=== PATIENT | male | born 1940 | race Caucasian/White ===

== ENCOUNTER 2018-12-30 07:47 | Inpatient (IN) | payer OTHER ==
[2018-12-11 09:03] LABS: HEMATOCRIT 39.9 % (42.0-52.0); MCH 31.5 pg (26.0-34.0); MCHC 35.2 g/dL (28.0-37.0); MCV 89.7 fL (80.0-100.0); MPV 7.6 fl. (7.2-11.1); RBC 4.45 mil/uL (4.50-6.00); RDW-CV 13.7 % (10.5-14.5); WBC 7.1 thou/uL (4.0-11.0)
[2018-12-11 09:05] LABS: URINE BILIRUBIN NEGATIVE (Negative); URINE BLOOD NEGATIVE (Negative); URINE CLARITY CLEAR; URINE COLOR YELLOW; URINE GLUCOSE-RANDOM NEGATIVE (Negative); URINE KETONES NEGATIVE (Negative); URINE LEUKOCYTES-REFLEX NEGATIVE (Negative); URINE NITRITE-REFLEX NEGATIVE (Negative); URINE PROTEIN NEGATIVE (Negative); URINE SPECIFIC GRAVITY <= 1.005 (1.005-1.030); URINE UROBILINOGEN 0.2 E.U./dl (0.2-1.0)
[2018-12-11 09:18] LABS: PROTIME 10.5 Seconds (9.20-11.50)
[2018-12-11 09:20] LABS: ALBUMIN 4.1 g/dL (3.4-5.0); CALCIUM 8.7 mg/dL (8.5-10.1); CREATININE 0.9 mg/dL (0.6-1.3); POTASSIUM 4.2 mmol/L (3.5-5.1); TOTAL BILIRUBIN 0.8 mg/dL (<0.1-1.0); TOTAL PROTEIN 7.7 g/dL (6.4-8.2)
[~2018-12-30] VITALS: Ht 210 cm; Wt 95.3 kg
[~2018-12-30 07:47] MED LIST: ALEVE220 MG PO; BIOTIN1 MG PO; CALCIUM WITH M1 EACH PO; CO Q-10400 MG PO; COLACE100 MG PO; FISH OIL 1,001000 M2 PO; HYDROCODONE-AP1 EAC6 PO; IBUPROFEN 800800 M1 PO; PROBIOTIC1 EAC1 PO; TOPROL XL25 MG PO; VITAMIN B12-FO1 EAC1 PO; VITAMIN D3400 UNI2 PO; VITAMIN E400 UNIT PO
[2019-01-05 12:30] VITALS: BP 145/79
--- NOTE | 2019-01-05 16:23 | EKG ---
[place] [address] ELECTROCARDIOGRAM REPORT Name: JENNACHEN MARADIAGA Room: [place] [address] ADM IN M.R.#: [id number] Admission: 01/05/19 Attend Phys: Sosa Ralph Discharge: Date of : 44 Report #: [id number] THIS REPORT FOR: //name// [facility] Test Date: 2019-01-05 Test Time: 12:27:02 Pat Name: CHEN WEST Department: Room: [place] [address] Gender: M Ambulance Driver: : [id number] Requested By: Wang Brown Order Number: [id number] Daphnie MD: Clinton Batista Measurements Intervals [place] Rate: 70 P: 10 MS: 171 QRS: -7 QRSD: 104 T: -14 QT: 416 QTc: 449 Interpretive Statements Sinus rhythm Inferior infarct, old No previous ECG available for comparison Electronically Signed On 01-05-2019 16:23:27 CDT by Clinton Batista [email or web address] <ELECTRONICALLY SIGNED> By: Clinton Batista MD, [facility] 01/05/19 1623 1227 1227 Clinton Batista MD, FACC /EPI
[2019-01-05 17:38] VITALS: BP 124/61
[2019-01-05 19:50] VITALS: BP 141/70
[2019-01-06] VITALS: BP 124/65
[2019-01-06 04:00] VITALS: BP 127/62
[2019-01-06 04:30] LABS: HEMATOCRIT 34.8 % (42.0-52.0)
--- NOTE | 2019-01-06 04:33 | NUR ---
PT ALERT AND ORIENTED. VITALS STABLE WITH 3L O2 BY NC. MEDS GIVEN ORDERED. PAIN WELL CONTROLLED WITH OXY IR. PT NAUSEATED AND VOMITED AROUND 2200. ZOFRAN OFFERED, BUT PT REFUSED. VANILLA PUDING GIVEN WITH PAIN PILLS PER PT REQUEST. DRESSING TO LEFT KNEE C/D/I. HEMOVAC, POLAR PACK IN PLACE. PT VOIDED WITH NO ISSUES USING URINAL. HOURLY ROUNDING COMPLETED. WILL CONTINUE TO MONITOR.
[2019-01-06 08:36] VITALS: BP 141/62
[2019-01-06] MEDS ORDERED: XARELTO10 MG PO (09:32)
[2019-01-06] MEDS ORDERED: PERCOCET PO (09:33)
[2019-01-06 09:51] VITALS: BP 141/62
[2019-01-06 14:54] VITALS: BP 141/62
[2019-01-06 15:29] VITALS: BP 141/62
--- NOTE | 2019-01-06 15:29 | NUR ---
PT GIVNE DISCHARGE INFORMATION, CARE NOTES, AND PRESCRIPTIONS. NOAH CALLED IN AND PT AGREED TO [place]. IV REMOVED. CPM SENT WITH PT. POLAR PACK WITH PT. WALKER WITH PT. HEMOVAC REMOVED. FALL RISK PRECAUTIONS IN PLACE. HOURLY ROUNDING COMPLETED. WILL CONTINUE TO MONITOR.
--- NOTE | 2019-01-06 15:59 | NUR ---
cm completed initial assessment to discuss d/c plan. pt lives at home w/spouse. pt will spend week at son's home b/c it's "one level." pt has no h w/snf or hh. pt agreed to [employer], signed "choice of vendor" form. cm provided [employer] pt's son address to schedule visit there. elizabeth celaya, agreed. [facility] - [phone].
--- NOTE | 2019-01-06 16:52 | NUR ---
RECIEVED O.T. EVAL AND TX ORDERS. DEFERRED TO P.T. AT THIS TIME. PLEASE ORDER FURTHER O.T. SERVICES AT THIS TIME.
--- NOTE | 2019-01-08 23:33 | OP ---
[facility] [address] [place] [address] OPERATIVE REPORT Name: JENNACHEN MARADIAGA Room: [address] IN M.R.#: [id number] Admission: 01/05/19 Attend Phys: Sosa Ralph Discharge: 01/06/19 Date of : 44 Report #: [id number] THIS REPORT FOR: //name// CC: Florina Levi DATE OF SERVICE: 01/05/2019 PREOPERATIVE DIAGNOSIS: Left knee osteoarthritis. POSTOPERATIVE DIAGNOSIS: Left knee osteoarthritis. PROCEDURE: Left total knee arthroplasty with Navio. ANESTHESIA: General endotracheal. ESTIMATED BLOOD LOSS: 50 mL. ANTIBIOTICS: Ancef preoperatively. DRAINS: Medium Hemovac. COMPLICATIONS: None. CONDITION: Stable to recovery room. IMPLANTS: Listed in operative record and progress note. BRIEF HISTORY: The patient was seen in the preoperative area. Preoperative H and P was performed. Site was marked and questions were answered. Risks and benefits were discussed with the patient in detail about surgery and he wished to proceed assuming all risks. DESCRIPTION OF PROCEDURE: The patient was taken to the operative suite and placed supine on the operating room table and given appropriate anesthesia. A well-padded tourniquet was applied to the upper thigh, which was inflated to 300 mmHg after gravity exsanguination for the duration of procedure. The operative knee was sterilely prepped and draped. Surgery began by midline incision. This was carried down through the subcutaneous tissues. A medial parapatellar arthrotomy was performed and carried down to bone. The patella was then everted and excess soft tissue removed from around the femur as well as osteophytes from around the femur and tibia. The femur and tibia tracking pins were then applied. The tracking alignment guides were then placed. The knee was registered through the Kauliio robotic software. After appropriate selection had been performed of the sizing of the knee, [place] [address] OPERATIVE REPORT Name: CHEN WEST Room: [address] IN [facility].#: [id number] Admission: 01/05/19 Attend Phys: Sosa Ralph Discharge: 01/06/19 Date of : 44 Report #: [id number] the robotic handpiece, the sites were formed for the cutting blocks for the femur and tibia. The femoral block was applied for the femur. It was checked with robotic assistance with the Navio handpiece pinned in appropriate position and appropriate cuts were made. The femoral cutting block was then applied, checked for rotational alignment, pinned in appropriate position and appropriate cuts were made. The tibia was exposed and excess meniscus was removed. Retractor was placed on collateral ligaments. Tibial cutting block was then applied, pinned in appropriate position, checked with a drop emely for rotational alignment as well as the Navio for appropriate rotational alignment and slope and appropriate cut was made. The tibial bone was removed. The tibial base plate was then applied and checked for rotational alignment with the drop emely in appropriate position. The femur was then applied and box cut was reamed. This was trialed and showed appropriate fit and fill with excellent stability with appropriate spacer. The patella was then reamed in appropriate fashion and sized to appropriate size. Three peg holes were drilled. It was then trialed and showed excellent flexion, extension and excellent tracking of the patella within the groove. These trials were then removed. The tibia was punched in appropriate fashion. Bone ends were cleansed with Pulsavac irrigation and cement was mixed and applied to final implants. These were then malleted into position and held the knee in extension and compressed to allow cement to cure. After it cured, excess was removed utilizing [place] and osteotome. Wound was then copiously irrigated and the final spacer was then malleted in position. The tourniquet was deflated. Hemostasis was obtained with electrocautery. Pain cocktail was injected. PRP gel sprayed throughout the internal aspects of the knee. Medium Hemovac drain was applied. Capsule was closed with #2 FiberWire and #1 Vicryl in [id number] fashion. Skin was closed with 2-0 Vicryl and running 3-0 Monocryl. The portal sites were closed with nylon. Dermabond and sterile dressing applied. Sebastián wrap and PolarCare applied. The patient transported to recovery room in stable condition. Counts were correct throughout the procedure. <ELECTRONICALLY SIGNED> By: Wang Brown II, DO 01/08/19 2333 0818 [id number] Brown II, DO /nt
== END 2019-01-06 15:30 | disposition home health service (06) | DRG 470 ==
LOC: M.PRE 07:47 → M.ORTHSURG 01-05 12:03 → M.TBA 01-05 12:03 → M.ORTHSURG 01-05 17:08
PROVIDERS: Orthopaedic Surgery; ADMIT Internal Medicine
PROC: 0SRD0J9 Replacement of Left Knee Joint with Synthetic Substitute, Cemented, Open Approach (ICD-10-PCS; principal; 2019-01-05)
PROC: 8E0Y0CZ Robotic Assisted Procedure of Lower Extremity, Open Approach (ICD-10-PCS; principal; 2019-01-05)
DX: M17.12 Unilateral primary osteoarthritis, left knee (principal); D62 Acute posthemorrhagic anemia; J98.11 Atelectasis; R53.82 Chronic fatigue, unspecified; R09.02 Hypoxemia; Z79.899 Other long term (current) drug therapy